=== PATIENT | male | born 1980 | race Caucasian/White ===

== ENCOUNTER 2024-07-03 07:43 | Outpatient (CLI) | payer BC, SELFPAY ==
--- NOTE | ~2024-07-03 | US_ITS ---
EXAMINATION: US right upper quadrant DATE: 07/03/2024 08:19 INDICATION: Abnormal levels of other serum enzymes. TECHNIQUE: Multiple grayscale and Doppler ultrasound images of the abdomen were obtained. COMPARISON: None FINDINGS: The visualized portions of the head, body, and tail of the pancreas are normal. There is di ffuse hepatic steatosis with focal sparing in the gallbladder fossa. There is normal flow in main por rosario vein. The gallbladder is normal in size. No gallstones or gallbladder wall thickening. There is n o sonographic Burciaga's sign. The common duct is dilated to 10 mm. IMPRESSION: 1. Diffuse hepatic steatosis. 2. Dilated common duct. Consider MRCP. Reviewed, dictated and finalized at location A.
== END 2024-07-03 07:44 | disposition home or self-care (01) ==
LOC: MICIMG 07:45
PROVIDERS: PCP Nurse Practitioner Family; Visit Provider Nurse Practitioner Family
DX: K76.0 Fatty (change of) liver, not elsewhere classified (principal); K83.8 Other specified diseases of biliary tract; R74.8 Abnormal levels of other serum enzymes
CPT/HCPCS: 76705

== ENCOUNTER 2024-08-02 07:45 | Outpatient (CLI) | payer BC, SELFPAY ==
--- NOTE | ~2024-08-02 | MR_ITS ---
EXAMINATION: MR MRCP wo con/w 3D wo ind pp DATE: 08/02/2024 08:57 INDICATION: Other specified diseases of biliary tract. Abnormal liver function tests. TECHNIQUE: Magnetic resonance imaging (MRI) of the abdomen was performed without and with 20 mL Multi Mohini intravenous contrast. Sequences included coronal T2-weighted FS FSE, coronal T2-weighted FSE, a xial T1-weighted LAVA, coronal FS FIESTA, axial dual-echo T1-weighted SPGR, coronal lava-FLEX, sagitt al T2-weighted FSE, axial T2-weighted FSE, and axial DWI. Thick-slab T2-weighted FSE images were obta ined for magnetic resonance cholangiopancreatography (MRCP). Maximum intensity projection 3-D reconst ructions of the volumetric data were created by the technologist. Postcontrast sequences included cor onal LAVA-flex and time course of axial T1-weighted LAVA. COMPARISON: Abdomen ultrasound 07/03/2024 FINDINGS: ABDOMEN MRI: There is diffuse hepatic steatosis. There are cysts in the liver measuring up to 4 mm. T he gallbladder is normal in size. The spleen, pancreas, adrenal glands, and right kidney are normal. There is a 2.4 cm hemorrhagic cyst in left kidney. There are no dilated loops of bowel. There are no pathologically enlarged lymph nodes. There is no free intraperitoneal fluid. ABDOMEN MRCP: The common duct is normal and measures 4 mm. No choledocholithiasis. IMPRESSION: 1. Normal common duct. No choledocholithiasis. 2. Diffuse hepatic steatosis. Reviewed, dictated and finalized at location [] [employer]
== END 2024-08-02 07:46 | disposition home or self-care (01) ==
PROVIDERS: PCP Nurse Practitioner Family; Visit Provider Nurse Practitioner Family
DX: K83.8 Other specified diseases of biliary tract (principal); R74.8 Abnormal levels of other serum enzymes; K76.0 Fatty (change of) liver, not elsewhere classified
CPT/HCPCS: 74181; 76376; A9577

== ENCOUNTER 2024-08-06 09:24 | Outpatient (CLI) | payer BC, SELFPAY ==
--- NOTE | 2024-08-24 20:15 | P.SLEEP_ITS ---
Sleep Study - Home Unattended Date of Study: 08/06/24 Ordering Provider: Kamla Mcfarlane NP Interpreting Provider: Elizabeth Giraldo DO Home Sleep Study Type: Watch PAT Height: 1.7 m Weight: 99.79 kg Body Mass Index: 34.4 Neck Circumference (inches): 17 Blain: 0 Reason for Sleep Study Snoring, witnessed apneas Sleep History The patient is a 44-year-old male that had a sleep study ordered by his primary care for evaluation of sleep apnea. The patient admits to loud snoring and interruptions in breathing while asleep. He denies choking or gasping while asleep. He denies having trouble breathing while on his back. He denies morning headaches. He denies having a dry or sore mouth/ throat in the morning. He denies nocturnal heartburn. He denies nocturia. He denies having difficulty falling asleep or maintaining sleep. He denies hypnotic or sedative use. He denies feeling anxious about sleep. He denies feeling tired or sleepy during the day. He denies feeling unrefreshed in the morning. He denies having the urge to fall asleep during the day. He denies feeling drowsy while driving. He denies sleep paralysis, cataplexy and hypnagogic / hypnopompic hallucinations. He denies clenching or grinding his teeth at night. He denies kicking or jerking his legs excessively. He denies having a restless feeling in his legs. He goes to bed at 11:00 p.m. on weekdays and at 11:30 p.m. on the weekends. It takes him 15 minutes to fall asleep. He gets 7-1/2 hours of sleep on weekdays and 8 hours of sleep on the weekends. His sleep is a little more restorative on his days off. He denies taking any plan naps. He denies dream enactment she 8 years. He denies sleep walking. He denies tobacco use PMFSH Past Medical History Medical History BMI 34.0-34.9,adult Common bile duct dilatation Elevated liver enzymes Environmental allergies Family hx of colon cancer Indigestion Rash and nonspecific skin eruption Snoring Witnessed apneic spells Family History Family History Father Non-Hodgkin lymphoma Mother Carcinoma of colon Social History Social History Smoking status: Never smoker Alcohol intake: current Drinks per week: 2 Substance use: never Medications Home Medications Medication Instructions Recorded Confirmed Type cetirizine 10 mg capsule (All Day 10 mg PO DAILY PRN 02/11/24 05/14/24 History Allergy (cetirizine)) diphenhydramine HCl 25 mg tablet 25 mg PO QHS PRN 02/11/24 05/14/24 History (Benadryl Allergy) omeprazole 20 mg capsule,delayed 20 mg PO DAILY #30 caps 02/11/24 05/14/24 Rx release triamcinolone acetonide 0.1 % 1 applic topical BID #15 grams 05/14/24 05/14/24 Rx topical cream Sleep Procedure The sleep study was completed using [employer] a technically adequate device with seven channels: peripheral arterial tone, actigraphy, body position, snore, respiratory movement, pulse oximetry, sleep staging, and heart rate. Prior to using the device, the patient received verbal and written instructions for its application and was provided with the help desk phone number for additional telephonic instruction with 24-hour availability of qualified personnel to answer questions. The study was scored using [facility] guidelines. Sleep Architecture The total recording time is 8 hrs, 28 min. The total sleep time is 7 hrs, 16 min. Sleep latency is 19 minutes. REM latency is 75 minutes. The patient had 8 episodes of waking. Sleep architecture shows 28.0% deep sleep, 42.1% light sleep, and (as % Total Sleep Time) showed NREM (Light 42.1%; Deep 28.0%), and a 29.9% stage REM. The patient spent 31.3% of total sleep time in the supine position. Sleep efficiency was 85.83. Respiratory Analysis The overall AHI (pAHI 4%:) is 9.6. The central AHI is 2.9. The AHI was 5.1 in NREM and 20.5 in REM sleep. The AHI was 16.9 in Supine and 5.3 in Non-supine sleep. Percent of Amos Mcdonald respirations is 0.0. Oximetry Data The oxygen desaturation index (GOVIND 4%:) is 9.6. The mean saturation is 93%, and the lowest saturation is 84%. Time spent with saturation < 88% is 0.1 minutes. Snoring Profile Snoring average intensity is 40 dB. The patient snored above 45 decibels for 15.5 minutes, 3.5% of sleep time. Cardiac Profile The average pulse rate is 68 beats per minutes. The lowest pulse rate is 45 bpm. The highest pulse rate reported is 107 bpm. Atrial fibrillation was not detected. Premature beats occur <0.1 per minute. Assessment and Plan Assessment and Plan (1) HUMBERTO (obstructive sleep apnea): Code(s): G47.33 - Obstructive sleep apnea (adult) (pediatric) Status: Acute Assessment and Plan: The patient has an overall AHI of 9.6 with desaturation down to 84%. This is consistent with mild sleep apnea. Insurance may not cover treatment for sleep apnea without a co-morbidity. I recommend that the patient be prescribed AutoPAP 5-15 cm H2O, CPAP mask/filters/tubing and heated humidity. This should be used with all episodes of sleep.? Compliance should be reviewed within 31-90 days of starting therapy for usage greater than 4 hours per night greater than 70% of the nights. The patient should be asked about symptoms such as?excessive daytime sleepiness, quality of sleep, decreased nocturia, increased?mental functioning such as memory, mood, and concentration. Data The data obtained during this sleep study is adequate for interpretation. Certification This sleep study has been reviewed by a board certified sleep medicine physician.
[2024-08-24 20:22] VITALS: BMI 34.4
== END 2024-08-09 09:30 | disposition home or self-care (01) ==
LOC: ANHCSM 09:28
PROVIDERS: PCP Nurse Practitioner Family; Visit Provider Nurse Practitioner Family
DX: R06.83 Snoring (principal); Z68.34 Body mass index [BMI] 34.0-34.9, adult; G47.33 Obstructive sleep apnea (adult) (pediatric)
CPT/HCPCS: 95800

== ENCOUNTER 2024-10-11 05:22 | Day surgery (SDC) | payer BC, SELFPAY ==
[2024-09-30 14:06] VITALS: BMI 34.5
[2024-10-11 10:22] VITALS: BP 133/89; PULSE 76; RESP 16; TEMP 36.2; O2SAT 99
--- NOTE | 2024-10-11 10:25 | WPDANESEPPF ---
Anes - Initial Pre Proc Eval Procedure: Operation Date: 10/11/24 11:30 Proposed Procedures p Screening Colonoscopy - Blake Matos MD Date/Time: 10/11/24 10:25 Surgeon: Blake Matos MD Pre Op Diagnosis: FAMILY hx malignant neoplasm digestive organs Patient Data Age: 44 Gender: M Height: 1.7 m Weight: 100 kg Allergies Allergy/AdvReac Type Severity Reaction Status Date / Time grass pollen-Bermuda, Allergy Unknown Verified 10/11/24 10:21 standard house dust mite Allergy Unknown Verified 10/11/24 10:21 oak Allergy Unknown Verified 10/11/24 10:21 ragweed pollen Allergy Unknown Verified 10/11/24 10:21 cats Allergy Unknown Uncoded 10/11/24 10:21 corn smut Allergy Unknown Uncoded 10/11/24 10:21 maple Allergy Unknown Uncoded 10/11/24 10:21 Home Medications ?Medication ?Instructions ?Recorded ?Confirmed ?Type cetirizine 10 mg capsule (All Day 10 mg PO DAILY PRN allergy symptoms 02/11/24 10/11/24 History Allergy (cetirizine)) diphenhydramine HCl 25 mg tablet 25 mg PO QHS PRN allergy symptoms 02/11/24 10/11/24 History (Benadryl Allergy) omeprazole 20 mg capsule,delayed 20 mg PO DAILY #30 caps 02/11/24 10/11/24 Rx release Patient hx anesthesia problems: none Family hx anesthesia problems: none Results Review: All pre-operative results and documents have been reviewed as part of the pre-operative evaluation. [facility] Past Medical History Medical History (Updated 10/11/24 @ 10:28 by Abraham Valerio DO) HUMBERTO (obstructive sleep apnea) Common bile duct dilatation BMI 34.0-34.9,adult Witnessed apneic spells Snoring Elevated liver enzymes Indigestion Family hx of colon cancer Rash and nonspecific skin eruption Environmental allergies Family History Family History Father Non-Hodgkin lymphoma Mother Carcinoma of colon Social History Social History Smoking status: Never smoker Alcohol intake: current Drinks per week: 2 Substance use: never Substance use type: does not use Anes - Eval Final PreProcedure Day of Procedure 10/11/24 10:25 Patient weight: obese Heart: regular rate and rhythm Lungs: clear to auscultation Airway: Mallampati scale class II Neurological: alert and oriented Last oral intake: >/= 8 hours ASA classification: III Emergent: no Anesthetic plan: proceed Anesthesia type and monitoring: general GIVS and standard monitoring Results Review: All pre-operative results and documents have been reviewed as part of the pre-operative evaluation. Informed Consent: The patient's anesthetic plan and its attendant risks and benefits were discussed with the patient/family/POA. Questions were solicited and answers provided to the satisfaction of the patient/family/POA.
[2024-10-11] MEDS: LACTATED RINGERS 1,000 ML 150 ML IV CONT (10:37)
--- NOTE | 2024-10-11 10:42 | PM.HPGS ---
History of Present Illness History of Present Illness Consent: Risks, benefits, and alternatives have been discussed and questions answered. Patient agrees to proceed with procedure. Chief complaint: FAMILY hx malignant neoplasm digestive organs Narrative: Kyle Estrada is a 44 year old male here for first colonoscopy, mother had colon cancer Review of Systems Review of Systems: All systems reviewed & are unremarkable except as noted in HPI and below PMFSH Past Medical History Medical History (Updated 10/11/24 @ 10:28 by Abraham Valerio DO) HUMBRETO (obstructive sleep apnea) Common bile duct dilatation BMI 34.0-34.9,adult Witnessed apneic spells Snoring Elevated liver enzymes Indigestion Family hx of colon cancer Rash and nonspecific skin eruption Environmental allergies Family History Family History Father Non-Hodgkin lymphoma Mother Carcinoma of colon Social History Social History Smoking status: Never smoker Alcohol intake: current Drinks per week: 2 Substance use: never Substance use type: does not use Meds Home Medications and Allergies Home Medications ?Medication ?Instructions ?Recorded ?Confirmed ?Type cetirizine 10 mg capsule (All Day 10 mg PO DAILY PRN allergy symptoms 02/11/24 10/11/24 History Allergy (cetirizine)) diphenhydramine HCl 25 mg tablet 25 mg PO QHS PRN allergy symptoms 02/11/24 10/11/24 History (Benadryl Allergy) omeprazole 20 mg capsule,delayed 20 mg PO DAILY #30 caps 02/11/24 10/11/24 Rx release Allergies Allergy/AdvReac Type Severity Reaction Status Date / Time grass pollen-[place], Allergy Unknown Verified 10/11/24 10:21 standard house dust mite Allergy Unknown Verified 10/11/24 10:21 oak Allergy Unknown Verified 10/11/24 10:21 ragweed pollen Allergy Unknown Verified 10/11/24 10:21 cats Allergy Unknown Uncoded 10/11/24 10:21 corn smut Allergy Unknown Uncoded 10/11/24 10:21 maple Allergy Unknown Uncoded 10/11/24 10:21 Vital Signs Vital Signs - 24 hr 10/11/24 10:22 Temperature 97.2 F L Pulse Rate 76 Respiratory Rate 16 Blood Pressure 133/89 Pulse Oximetry 99 Oxygen Delivery Room Air Exam Const: General: comfortable and no acute distress HENMT: Face/Nose/Sinus: Normal nares present Eyes: General: appearance normal, both eyes and all related structures Neck: Neck: no JVD Resp: Auscultation: clear to auscultation bilaterally Cardio: Rate: regular rate Rhythm: regular rhythm GI: Inspection: non-distended GI Palp: Yes Soft to palpation Skin: General skin exam: normal color Neuro: General: gait normal Speech: normal speech Extrem: General: normal to inspection Psych: Mental Status: mental status grossly normal Assessment and Plan Assessment and plan (1) Family hx of colon cancer: Code(s): Z80.0 - Family history of malignant neoplasm of digestive organs Status: Acute Assessment and Plan: colonoscopy
[2024-10-11 11:00] VITALS: BP 111/49; PULSE 86; RESP 20; O2SAT 99
[2024-10-11 11:10] VITALS: BP 112/76; PULSE 83; RESP 18; O2SAT 100
[2024-10-11 11:20] VITALS: BP 122/77; PULSE 89; RESP 19; O2SAT 98
--- OUTSIDE RECORDS SUMMARY | 2024-10-14 11:22 | XMS_ITS | Clinical Summary ---
Author Organization [facility] Address [address] [place] [address] Care Team Providers Care Neck Skewer Name Role Phone Unavailable Primary Care Provider Unavailabl e Source Comments [facility],non-owned Affiliates and Associated Physician Practices is amultiple site organization consisting of ambulatory clinics and hospital sitesin [place], [place], [place] and [place]. This disclosure is being madepursuant to the Care Everywhere program and may not contain all information available regarding this patient. Last updated 18.[facility] Immunizations Name Administration Dates Next Due INFLUENZA VACCINE, QUADR. (F LUZONE; FLULAVAL; FLUARIX; AFLURIA QUADRIVALENT; 6MO+), 0.5 ML (IIV4) 07/16/2019 Social History Tobacco Use Types Packs/Day Years Used Date Smoking Tobacco: Never Assessed Sex and Gender Information Value Date Recorded Sex Assigned at Not on file Gender Identity Not on file Sexual Orientation Not on file Plan of Treatment Health Maintenance Due Date Last Done Comments LIPID TESTING 1981 HIV SCREENING 1996 HEPATITIS C SCREENING 07/20/1999 DTAP/TDAP/TD VACCINES (1 - Tdap) 2000 HEPATITIS B VACCINE (1 of 3 - 19+ 3-dose series) 2000 COVID-19 VACCINE (2023-2 5 season) 2024 INFLUENZA VACCINE (#1) 2024 07/16/2019 DEPRESSION SCREENING 09/22/2024 ZOSTER VACCINE (1 of 2) 2031 HIB VACCINE Aged Out No longer eligi ble based on patient's age to complete this topic HPV VACCINE Aged Out No longer eligi ble based on patient's age to complete this topic MENINGOCOCCAL (Group B) VACCINE Aged Out No longer eligible based on patient's age to complete this topic MENINGOCOCCAL VACCINE Aged Out No agnes sulma eligible based on patient's age to complete this topic PNEUMOCOCCAL VACCINE Aged Out No long er eligible based on patient's age to complete this topic
--- OUTSIDE RECORDS SUMMARY | 2024-10-14 11:22 | XMS_ITS | Clinical Summary ---
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 Gender Identity Not on file Sexual Orientation Not on file Plan of Treatment Health Maintenance Due Date Last Done Comments Hepatitis C Virus (HCV) Screening 1981 TdaP Immunization 1981 Hepatitis B Immunization (1 of 3 - 19+ 3-dose series) 2000 Influenza Immunization (#1) 2024 SARS-COV-2 Immunization ( - 2023- season) 2024 Respiratory Syncytial Virus (RSV) Immunization (Adult) (1 - 1-dose 75+ series) 2056 Meningococcal Immunization (ACWY) Aged Out No longer eligible based on patient's age to complete this topic Pneumococcal Immunization Combined Aged Out No longer eligible based on patient's age to complete this topic Rotavirus Immunization Aged Out No lo nger eligible based on patient's age to complete this topic
--- OUTSIDE RECORDS SUMMARY | 2024-10-14 11:22 | XMS_ITS | Patient Health Summary ---
Author Organization [facility] Address [address] [place] [address] Care Team Providers Care Dryer Operator Name Role Phone Unavailable Primary Care Provider Unavailabl e Note from [facility],non-owned Affiliates and Associated Physician Practices is amultiple site organization consisting of ambulatory clinics and hospital sitesin [place], [place], [place] and [place]. This disclosure is being madepursuant to the Care Everywhere program and may not contain all information available regarding this patient. Last updated 18.[facility] Immunizations * INFLUENZA VACCINE, QUADR. (FLUZONE; FLULAVAL; FLUARIX; AFLURIA QUADRIVALENT; 6MO+), 0.5 ML (IIV4)(Given 07/16/2019) Social History Tobacco Use Types Packs/Day Years Used Date Smoking Tobacco: Never Assessed Sex and Gender Information Value Date Recorded Sex Assigned at Not on file Gender Identity Not on file Sexual Orientation Not on file
--- OUTSIDE RECORDS SUMMARY | 2024-10-14 11:22 | XMS_ITS | Referral Summary ---
Author Organization [facility] Address [address] [place] [address] Care Team Providers Care Teenage Babysitter Name Role Phone Unavailable Primary Care Provider Unavailabl e Source Comments [facility],non-owned Affiliates and Associated Physician Practices is amultiple site organization consisting of ambulatory clinics and hospital sitesin [place], [place], [place] and [place]. This disclosure is being madepursuant to the Care Everywhere program and may not contain all information available regarding this patient. Last updated 18.[facility] Immunizations Name Administration Dates Next Due INFLUENZA VACCINE, QUADR. (F LUZONE; FLULAVAL; FLUARIX; AFLURIA QUADRIVALENT; 6MO+), 0.5 ML (IIV4) 07/16/2019 Social History Tobacco Use Types Packs/Day Years Used Date Smoking Tobacco: Never Assessed Sex and Gender Information Value Date Recorded Sex Assigned at Not on file Gender Identity Not on file Sexual Orientation Not on file Plan of Treatment Not on file
--- OUTSIDE RECORDS SUMMARY | 2024-10-14 11:22 | XMS_ITS | Clinical Summary ---
Author Organization [facility] Address [address] [place] [address]. [place], [place] [id number] [place] [id number] Care Team Providers Care Maintenance Mechanic Engine Name Role Phone None, Provider Primary Care Provider Unavaila ble Social History Tobacco Use Types Packs/Day Years Used Date Smoking Tobacco: Never Assessed Sex and Gender Information Value Date Recorded Sex Assigned at Not on file Legal Sex Male 2:50 PM CDT Gender Identity Not on file Sexual Orientation Not on file Plan of Treatment Health Maintenance Due Date Last Done Comments Annual Physical 1984 Hepatitis C 1999 DTaP, Tdap and Td Vaccines ( 1 - Tdap) 2000 Hepatitis B Vaccines (1 of 3 - 19+ 3-dose series) 2000 COVID-19 Vaccine ( - 2023-2 5 season) 2024 Influenza Adult (#1) 2024 07/16/2019 HPV Vaccines Aged Out No longer eligi ble based on patient's age to complete this topic Meningococcal Vaccine Aged Out No agnes sulma eligible based on patient's age to complete this topic Pneumococcal Vaccine: Pediat rics (0 to 5 Years) and At-Risk Patients (6 to 64 Years) Aged Out No longer eligi ble based on patient's age to complete this topic RSV Immunizations Under 20 Months Aged Out No longer eligible based on patient's age to complete this topic Care Teams Maintenance Mechanic Engine Relationship Specialty Start Date End Date None, Provider, PCP - General 12/22/21
== END 2024-10-11 11:34 | disposition home or self-care (01) ==
PROVIDERS: PCP Nurse Practitioner Family; Visit Provider Internal Medicine Gastroenterology
PROC: 0DJD8ZZ Inspection of Lower Intestinal Tract, Via Natural or Artificial Opening Endoscopic (ICD-10-PCS; CPT 45378; principal; 2024-10-11 11:30)
DX: Z12.11 Encounter for screening for malignant neoplasm of colon (principal); K64.8 Other hemorrhoids; Z80.0 Family history of malignant neoplasm of digestive organs; E66.9 Obesity, unspecified; Z68.33 Body mass index [BMI] 33.0-33.9, adult
CPT/HCPCS: 45378; J2003; J2704; J7120